=== PATIENT | female | born 1950 | race Caucasian/White ===

== ENCOUNTER 2016-10-12 08:31 | Day surgery (SDC) | payer MEDICARE ==
[2016-10-12] MEDS ORDERED: Lactated Ringer's 500 ML IV ONE (09:30)
[2016-10-12] MEDS ORDERED: Propofol 10 mg/ml Inj (20 ML) ONE (11:29)
[2016-10-12 12:09] VITALS: BP 121/56; PULSE 61; RESP 15; TEMP 97; O2SAT 99
== END 2016-10-12 12:30 | disposition home or self-care (01) ==
LOC: H.ENDO 08:31
PROVIDERS: ATTEND Internal Medicine Gastroenterology
DX: Z12.11 Encounter for screening for malignant neoplasm of colon (principal); I10 Essential (primary) hypertension; K64.8 Other hemorrhoids
CPT/HCPCS: 45378; J2001; J2704; J7120